=== PATIENT | male | born 1985 | race Caucasian/White ===

== ENCOUNTER 2018-01-18 19:22 | Emergency (ER) | payer SELFPAY ==
[~2018-01-18] VITALS: Ht 185.4 cm; Wt 90.7 kg
--- OUTSIDE RECORDS SUMMARY | 2018-01-18 19:24 | XMS REPORT | Clinical Summary ---
Author Author [facility] Organization [facility] Address Unknown Phone Unavailable Care Team Providers Care Ve Teacher Name Role Phone Aaron Barlow MD PCP Allergies No Known Allergies Current Medications Prescription Sig. Disp. Refills Start End Date Status Date albuterol (PROAIR Inhale 2 puffs every 4 1 Inhaler 0 12/06/19 Active HFA,PROVENTIL (four) hours as needed 18 HFA,VENTOLIN HFA) 90 for wheezing for up to 30 mcg/actuation inhaler doses. oseltamivir (TAMIFLU) 75 Take 1 capsule (75 mg 10 capsule 0 12/06/19 12/11/19 MG capsule total) by mouth 2 (two) 18 18 times a day for 5 days. predniSONE (DELTASONE) 20 Take 1 tablet (20 mg 10 tablet 0 12/06/19 12/11/19 mg tablet total) by mouth 2 (two) 18 18 times a day for 5 days. azithromycin (ZITHROMAX) Take first 2 tablets 6 tablet 0 12/06/19 250 MG tablet together, then 1 every 18 18 day until finished. albuterol (ACCUNEB) 1.25 Take 3 mL (1.25 mg total) 60 vial 0 12/06/19 01/06/20 mg/3 mL nebulizer by nebulization every 6 18 18 solution (six) hours as needed for wheezing for up to 30 days. codeine-guaifenesin Take 5 mL by mouth 3 150 mL 0 12/06/19 12/13/19 (CHERATUSSIN AC) 10-100 (three) times a day as 18 18 mg/5 mL liquid needed for cough for up to 7 days. Active Problems Not on file Encounters Date Type Specialty Care Team Description 12/06/2017 Emergency Emergency Medicine Daniel Brewer Flu- like symptoms MD [facility] (Primary Dx); Acute pharyngitis, unspecified etiology; Bronchospasm with bronchitis, acute after 01/17/2017 Social History Tobacco Use Types Packs/Day Years Used Date Current Every Day Smoker Smokeless Tobacco: Never Used Sex Assigned at Date Recorded Not on file Last Filed Vital Signs Vital Sign Reading Time Taken Blood Pressure 134/75 12/06/2017 6:48 PM [employer] Pulse 110 12/06/2017 6:48 PM [employer] Temperature 36.4 C (97.6 F) 12/06/2017 6:48 PM [employer] Respiratory Rate 20 12/06/2017 6:48 PM [employer] Oxygen Saturation 97% 12/06/2017 6:48 PM [employer] Inhaled Oxygen - - Concentration Weight 90.7 kg (200 lb) 12/06/2017 3:08 PM [employer] Height 182.9 cm (6') 12/06/2017 4:25 PM [employer] Body Mass Index 27.12 12/06/2017 3:08 PM [employer] Plan of Treatment Health Maintenance Due Date Last Done Comments INFLUENZA VACCINE 05/30/2017 Results * XR Chest 2 Vw (12/06/2017 5:10 PM) Specimen Performing Laboratory [facility] [address] [place] [address] Narrative EXAMINATION:XR CHEST 2 VW CLINICAL HISTORY:Cough, Fever COMPARISON:None IMPRESSION: 1.Lungs are clear. 2.Mediastinal contours and cardiac silhouette are unremarkable. 3.No acute osseous abnormality. 4.Cholecystectomy. [id number] Procedure Note Interface, Radiology Results Incoming - 12/06/2017 5:14 PM [employer] EXAMINATION: XR CHEST 2 VW CLINICAL HISTORY: Cough, Fever COMPARISON: None IMPRESSION: 1. Lungs are clear. 2. Mediastinal contours and cardiac silhouette are unremarkable. 3. No acute osseous abnormality. 4. Cholecystectomy. [id number] * Group A strep, rapid antigen (12/06/2017 4:17 PM) Component Value Ref Range Group A strep, rapid Negative for Group A Streptococcus antigen. antigen result Comment: Specimen Information Specimen Source: Throat Specimen Site: Not otherwise specified Specimen Performing Laboratory Throat - Not otherwise [facility] [place]OLOGY AND GENOMIC MEDICINE specified [address] [place] [address] * Respiratory pathogen panel (12/06/2017 4:16 PM) Component Value Ref Range Respiratory pathogen Negative for all pathogens tested: panel Negative for Adenovirus Negative for Coronavirus HKU1 Negative for Coronavirus NL63 Negative for Coronavirus 229E Negative for Coronavirus OC43 Negative for Human Metapneumovirus Negative for Rhinovirus/Enterovirus Negative for Influenza A Negative for Influenza A/H1 Negative for Influenza A/H3 Negative for Influenza A/H1-2009 Negative for Influenza B Negative for Parainfluenza Virus 1 Negative for Parainfluenza Virus 2 Negative for Parainfluenza Virus 3 Negative for Parainfluenza Virus 4 Negative for Respiratory Syncytial Virus Negative for Bordetella pertussis Negative for Chlamydophila pneumoniae Negative for Mycoplasma pneumoniae This real-time PCR assay detects the presence of nucleic acids (RNA or DNA) for the respiratory pathogens listed. A result of "Not-detected" does not exclude the possibility of the presence of one or more pathogens at concentrations less than the detectable limits of the assay. Comment: Specimen Information Specimen Source: Nares Specimen Site: Not specified Specimen Performing Laboratory Nares - Not specified [facility] [address] [place] [address] * Influenza antigen (12/06/2017 4:16 PM) Component Value Ref Range Influenza antigen Negative for Influenza A/B antigen. Comment: Specimen Information Specimen Source: Nares Specimen Site: Right Specimen Performing Laboratory Nares - Right [facility] [place] DEPARTMENT OF PATHOLOGY AND GENOMIC MEDICINE [address] [place] [id number] * Strep screen culture (12/06/2017 4:02 PM) Component Value Ref Range Strep screen culture No beta hemolytic Streptococci isolated isolate Comment: Specimen Information Specimen Source: Throat Specimen Site: Not specified Specimen Performing Laboratory Throat - Not specified [facility] [address] [place] [address] after 01/17/2017 Insurance Payer Benefit Subscriber ID Type Phone Address Plan / Group [employer] xxxxxxxxxx Exchange [employer] EXCHANGE
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
[2018-01-18 23:14] VITALS: BP 128/86
== END 2018-01-18 22:55 | disposition home or self-care (01) ==
LOC: ER 19:22
DX: S06.0X0A Concussion without loss of consciousness, initial encounter (principal); S16.1XXA Strain of muscle, fascia and tendon at neck level, initial encounter; S20.212A Contusion of left front wall of thorax, initial encounter; S50.812A Abrasion of left forearm, initial encounter; S50.811A Abrasion of right forearm, initial encounter; V43.52XA Car driver injured in collision with other type car in traffic accident, initial encounter; Y92.488 Other paved roadways as the place of occurrence of the external cause
CPT/HCPCS: 70450; 71046; 72125; 99283